=== PATIENT | female | born 1950 | race Caucasian/White ===

== ENCOUNTER 2017-06-18 22:29 | Emergency (ER) | payer MEDICARE, OTHER ==
[~2017-06-18] VITALS: Ht 157.5 cm; Wt 72.6 kg
[~2017-06-18 22:29] MED LIST: CALCAVITDA PO; CHOL10002 PO; HYDACE5325 PO; MULVITMIND PO; RXHYD5325 PO; SIMV40 PO
[2017-06-18] MEDS ORDERED: RISE5 PO (22:53)
[2017-06-19] MEDS ORDERED: Cleocin HCl150 MG PO (03:17)
== END 2017-06-19 01:09 | disposition home or self-care (01) ==
LOC: ER 22:29
DX: L03.012 Cellulitis of left finger (principal); Z88.0 Allergy status to penicillin; Z79.899 Other long term (current) drug therapy; Z79.891 Long term (current) use of opiate analgesic; E78.00 Pure hypercholesterolemia, unspecified
CPT/HCPCS: 96365; 99283

== ENCOUNTER → 2018-07-01 | Outpatient (CLI) | payer MEDICARE, OTHER ==
[~2018-07-01] MED LIST changes: +Cleocin HCl150 MG PO; +RISE5 PO
== END | disposition home or self-care (01) ==
LOC: LAB SHORT 12:00 → PLD 12:00
DX: D22.72 Melanocytic nevi of left lower limb, including hip (principal)
CPT/HCPCS: 88305

== ENCOUNTER 2023-07-02 09:47 | Day surgery (SDC) | payer MEDICARE, OTHER ==
[~2023-07-02] VITALS: Ht 157.5 cm; Wt 67.2 kg
[~2023-07-02 09:47] MED LIST changes: +ALBU90OI INH; +ATOR40TA PO; +Lactated Ringer's 1,000 ML IV ONE; +RISE35 PO; +propofoL 50 ML IV ONE
[2023-07-02] MEDS ORDERED: Lactated Ringer's 1,000 ML IV ONE (11:20)
[2023-07-02 12:43] VITALS: BP 112/70
== END 2023-07-02 12:52 | disposition home or self-care (01) ==
LOC: ORSCSDS 09:47
PROVIDERS: Internal Medicine Gastroenterology
PROC: 0DBM8ZX Excision of Descending Colon, Via Natural or Artificial Opening Endoscopic, Diagnostic (ICD-10-PCS; principal; 2023-07-02 11:15)
DX: Z12.11 Encounter for screening for malignant neoplasm of colon (principal); K63.5 Polyp of colon; Z86.010 Personal history of colon polyps; G47.33 Obstructive sleep apnea (adult) (pediatric); K21.9 Gastro-esophageal reflux disease without esophagitis; Z80.7 Family history of other malignant neoplasms of lymphoid, hematopoietic and related tissues; E78.00 Pure hypercholesterolemia, unspecified; J45.909 Unspecified asthma, uncomplicated; E78.5 Hyperlipidemia, unspecified; Z79.899 Other long term (current) drug therapy; Z87.891 Personal history of nicotine dependence; K57.30 Diverticulosis of large intestine without perforation or abscess without bleeding
CPT/HCPCS: 88305; J2704; J7120